=== PATIENT | male | born 1945 | race Two or more races ===

== ENCOUNTER 2019-07-05 12:27 | Inpatient (IN) | payer OTHER ==
[~2019-07-05] VITALS: Wt 6.0 kg
[~2019-07-05 12:27] MED LIST: CARDURA1 MG PO; DILTIAZEM ER180 M1 PO; HYDROCHLOROTHIA25 MG PO; LEVEMIR100 U/ML SQ; LISINOPRIL40 MG PO; METFORMIN HCL500 MG PO
[2019-07-05] MEDS ORDERED: CARBIDOPA-LEVO1 EAC4 (12:45)
[2019-07-05] MEDS ORDERED: COZAAR100 MG (12:46)
[2019-07-05] MEDS ORDERED: COUMADIN5 MG (12:48)
[2019-07-05] MEDS ORDERED: SERTRALINE HCL50 MG (12:48)
[2019-07-05] MEDS ORDERED: PANTOPRAZOLE SO40 MG (12:49)
[2019-07-05] MEDS ORDERED: PROTONIX40 M1 (12:55)
[2019-07-05] MEDS ORDERED: AMLODIPINE-OLM1 EAC3 (12:57)
[2019-07-05] MEDS ORDERED: GLIPIZIDE5 MG (12:58)
[2019-07-05] MEDS ORDERED: SILVER SULFADIA50 GM (12:58)
--- NOTE | 2019-07-05 13:02 | NUR ---
SE RECIBE PACIENTE LLEGA EN AMBULANCIA ACOMPANADO POR ELISE DE HOGAR SUSTITUTO. REFIEREN PTE. TIENE ULCERA SACRAL INFECTADA. SE ESTIMAN S/V, SE LE NOTIFICAN A DR. JALLOH Y PRESENTAN MINNIE, SE NOTIFICA TEMPERATURA A PERSONAL RN. SE UBICA A PTE. EN AREAS DE CAMA K4, SE CONTRERAS ESTABLE CON BARANDAS ELEVADAS.
[2019-07-05] MEDS ORDERED: CARVEDILOL25 MG PO (13:10)
[2019-07-05] MEDS ORDERED: FEOSOL325 MG PO (13:11)
--- NOTE | 2019-07-05 15:41 | NUR ---
A EVALUA PTE. SE ORIENTA A FAMILIAR SOBRE [place] MEDICO. FAMILIAR REFIERE COMPRENDER. SE REALIZAN MUESTRAS DE LABORATORIO BAJO MEDIDAS ASEPTICAS. PERSONAL DE CUIDADO DE PIEL REALIZA CURACION DE ULCERA SACRAL Y EN AMBOS TALONES. SE NOTIFICAN RICA X. PROCEDIMIENTOS LLEVADOS A CABO POR .
--- NOTE | 2019-07-05 23:49 | NUR ---
PACIENTE DORMIDO EN CAMA CON BARANDAS ELEVADAS Y INTERCOM ACCESIBLE. IV FLUID PATENTE Y JUSTICE DE EDEMA Y ERITEMA, RECIBIENDO 0.9 NSS DE 1,000ML BAJANDO A 200ML/HR. PACIENTE CONSULTADO CON DR. MARIA LUZ DOMINGUEZ. PACIENTE CON ULCERA SACRAL INFECTADA. HAMMER EDDIE DEL TURNO ANTERIOR REFIRIO QUE PERSONAL DE SKIN TEAM EVALUO A PACIENTE. PACIENTE CON SONDA URINARIA.
--- NOTE | 2019-07-06 06:40 | NUR ---
SE DESCARTA 500ML DE ORINA AMARILLO DE LA SONDA URINARIA.
--- NOTE | 2019-07-06 06:59 | NUR ---
SE RECIBE PACIENTE ALERTA Y ORIENTADO EN [place] ESFERAS, EN CAMA BARANDAS ELEVADAS. SE OBSERVA VENOPUNCION JUSTICE DE EDEMA Y ENROJECIMIENTO, PATENTE. SPACE OPERATIONS CASSIE SIGNOS VITALES. EN ESPERA REEVALUACION MEDICA. SE ORIENTA A NOTIFICAR CUALQUIER CAMBIO, BARANDAS ELEVADAS Y TIMBRE ACCESIBLE.
--- NOTE | 2019-07-06 07:09 | NUR ---
SE RECIBE PTE ALERTA Y ORIENTADO X ACOMAPANDADO DE FAMILIAR. PTE SE OBSERVA EN NORMAN CON BARANDAS ELEVADAS. PTE SE OBSERVA CON 0.9NSS BAJANDO A 200ML/HR. PTE CON CARSON BAJANDO A GRAVEDAD. PTE EN ESPERA DE CONSULTA CON MEDICINA INTERNA. PTE SE CONTINUA MONITORIANDO POR CAMBIOS.
[2019-07-22] MEDS ORDERED: INTESTINEX680 M1 PO (16:26)
[2019-07-22] MEDS ORDERED: LORATADINE10 MG PO (16:26)
[2019-07-22] MEDS ORDERED: SERTRALINE HCL50 MG PO (16:26)
[2019-07-22] MEDS ORDERED: CARVEDILOL25 MG PO (16:26)
[2019-07-22] MEDS ORDERED: PANTOPRAZOLE SO40 MG PO (16:26)
[2019-07-22] MEDS ORDERED: SINEMET 25-1001 EACH PO (16:26)
[2019-07-22] MEDS ORDERED: FLAGYL500MG PO (16:26)
[2019-07-22] MEDS ORDERED: AMOX-CLAV 875-1 EACH PO (16:26)
[2019-07-22] MEDS ORDERED: LOSARTAN POTAS100 MG PO (16:26)
[2019-07-22] MEDS ORDERED: FLONASE16 GM NASAL (16:26)
[2019-07-22] MEDS ORDERED: FERROUS SULFAT325 M1 PO (16:26)
[2019-07-22] MEDS ORDERED: SIMVASTATIN20 MG PO (16:26)
== END 2019-07-23 20:18 | disposition home health service (06) | DRG 463 ==
LOC: ER 12:27 → MEDJ 07-06 08:53
PROVIDERS: ADMIT Internal Medicine
PROC: 0JB70ZZ Excision of Back Subcutaneous Tissue and Fascia, Open Approach (ICD-10-PCS; principal; 2019-07-06)
PROC: CP151ZZ Planar Nuclear Medicine Imaging of Spine using Technetium 99m (Tc-99m) (ICD-10-PCS; 2019-07-06)
PROC: 8E0ZXY6 Isolation (ICD-10-PCS; 2019-07-06)
PROC: 0T9B70Z Drainage of Bladder with Drainage Device, Via Natural or Artificial Opening (ICD-10-PCS; 2019-07-06)
PROC: 30233N1 Transfusion of Nonautologous Red Blood Cells into Peripheral Vein, Percutaneous Approach (ICD-10-PCS; 2019-07-07)
DX: M46.28 Osteomyelitis of vertebra, sacral and sacrococcygeal region (principal); L89.154 Pressure ulcer of sacral region, stage 4; I96 Gangrene, not elsewhere classified; D68.318 Other hemorrhagic disorder due to intrinsic circulating anticoagulants, antibodies, or inhibitors; E11.52 Type 2 diabetes mellitus with diabetic peripheral angiopathy with gangrene; R78.81 Bacteremia; R31.29 Other microscopic hematuria; E11.65 Type 2 diabetes mellitus with hyperglycemia; D50.0 Iron deficiency anemia secondary to blood loss (chronic); I48.0 Paroxysmal atrial fibrillation; I10 Essential (primary) hypertension; B96.4 Proteus (mirabilis) (morganii) as the cause of diseases classified elsewhere; B96.1 Klebsiella pneumoniae [K. pneumoniae] as the cause of diseases classified elsewhere; B95.1 Streptococcus, group B, as the cause of diseases classified elsewhere; G20 Parkinson's disease; Z74.01 Bed confinement status; Z79.4 Long term (current) use of insulin; Z79.01 Long term (current) use of anticoagulants; Z86.73 Personal history of transient ischemic attack (TIA), and cerebral infarction without residual deficits